=== PATIENT | male | born 1955 | race Caucasian/White ===

== ENCOUNTER 2016-08-03 09:36 | Day surgery (SDC) | payer BC ==
[~2016-08-03 09:36] MED LIST: Lactated Ringers 1,000 ML IV SCH; ceFAZolin 2 GM in Premix Bag 1 BAG IV ONE
[2016-08-03] MEDS ORDERED: Lidocaine 1% with EPINEPHrine 1:100,000 20 ML MDV ONE (10:02)
[2016-08-03] MEDS ORDERED: Bupivacaine 0.25%/EPINEPHrine 1:200,000 10 ML SDV ONE ×2 (10:02→12:23)
[2016-08-03] MEDS ORDERED: Acetaminophen/oxyCODONE 325-5 MG Tab PO PRN (10:39)
--- NOTE | 2016-08-03 10:54 | PCM.PREANE ---
Preanesthetic Assessment - ANESTHESIA/TRANSFUSION/FAMILY HX Anesthesia/Transfusion History: No Prior Anesthesia Type of Anesthesia Reaction: Denies: Allergy, Anesthesia Awareness, Excessive Somnolence, Excessive Nausea/Vomiting, Excessive Itching, Excessive Shivering, Malignant Hyperthermia, Malignant Hyperthermia, Family History, Pseudocholinesterase Deficiency, Pseudocholinesterase Deficiency, Family History of, Urinary Retention, Unknown, Other (see below) Family History of Anesthesia Reaction: No - REVIEW OF SYSTEMS Constitutional: Reports: no symptoms (influenza 1 month ago had chest xray in ER and was negative for pneumonia) OCCUPATIONAL MEDICINE PHYSICIAN: Reports: no symptoms Respiratory: Reports: no symptoms Cardiovascular: Reports: no symptoms GI: Reports: no symptoms Other: Reports: none - PHYSICAL ASSESSMENT O2 Sat by Pulse Oximetry: 98 RR: 16 Vital Signs: Last Vital Signs Temp 36.3 C 08/03/16 10:13 Pulse 72 08/03/16 10:13 Resp 16 08/03/16 10:13 BP 131/77 08/03/16 10:13 Pulse Ox 98 08/03/16 10:13 Height: 5 ft 5 in Weight: 91.172 kg ASA Class: 1 Mental Status: alert & oriented x3 Airway Class: Mallampati = 1 Dentition: Reports: normal dentition ROM/Head Extension: full Respiratory Status: lungs clear to auscultation bilaterally Cardiovascular Status: regular rate & rhythm, normal S1, S2, no murmur, blood pressure WNL - ALLERGIES Allergies/Adverse Reactions: Allergies Allergy/AdvReac Type Severity Reaction Status Date / Time No Known Allergies Allergy Verified 07/09/16 09:11 - BLOOD Blood Available: No - ANESTHESIA PLAN Anesthesia Type Planned: general anesthesia (ETT with prone position) - ACKNOWLEDGEMENTS Pt an appropriate candidate for the planned anesthesia: Yes Alternatives and risks of anesthesia discussed w pt/guardian: Yes Pt/Guardian understands and agree with anesthesia plan: Yes PreAnesthesia Questionnaire HEENT History: Reports: Other (see below) Other HEENT History: wears glasses Cardiovascular History: Reports: Other (see below) Other Cardiovascular History: mild mitral valve prolapse- no symptoms was diagnosed when had strep throat many years ago Respiratory History: Reports: Other (see below) Other Respiratory History: hx of pneumonia Gastrointestinal History: Reports: Other (see below) Other Gastrointestinal History: occasional heartburn Oncologic (Cancer) History: Reports: Basal cell carcinoma Other Oncologic History: basal cell carcinoma to upper left arm, malignant melanoma on rt upper back Dermatologic History: - Infectious Disease History Infectious Disease History: Reports: Chicken pox - Past Surgical History Head Surgeries/Procedures: Reports: None HEENT Surgical History: Reports: None Dermatological Surgical History: Reports: Skin biopsy, Other (see below) - SUBSTANCE USE Smoking Status *Q: Never Smoker Recreational Drug Use History: No - HOME MEDS Home Medications: Home Meds Multivitamin [Multivitamins] 1 tab PO DAILY 08/01/16 [History] - CURRENT (IN HOUSE) MEDS Current Meds: Current Medications Lactated Ringer's (Ringers, Lactated) 1,000 mls @ 125 mls/hr IV ASDIRECTED HARMEET Last Admin: 08/03/16 10:16 Dose: 125 mls/hr Oxycodone/Acetaminophen (Percocet 325-5 Mg) 1 tab PO Q8H PRN PRN Reason: Pain Discontinued Medications Bupivacaine HCl/Epinephrine Bitart (Marcaine 0.25%/Epinephrine 1:200,000) Confirm Administered Dose 10 ml .ROUTE .STK-MED ONE Stop: 08/03/16 10:03 Cefazolin Sodium/Dextrose 2 gm (/ Premix) 50 mls @ 100 mls/hr IV ONETIME ONE Stop: 08/03/16 05:29 Lidocaine/Epinephrine (Xylocaine 1% With Epinephrine 1:100,000) Confirm Administered Dose 20 ml .ROUTE .STK-MED ONE Stop: 08/03/16 10:03
[2016-08-03] MEDS ORDERED: Midazolam 1 MG/ML 2 ML SDV ONE (11:18)
[2016-08-03] MEDS ORDERED: Ondansetron 4 MG/2 ML SDV ONE (11:18)
[2016-08-03] MEDS ORDERED: Rocuronium 10 MG/ML 10 ML Syringe ONE (11:18)
[2016-08-03] MEDS ORDERED: Propofol 200 MG/20 ML SDV ONE ×2 (11:18→11:57)
[2016-08-03] MEDS ORDERED: Lidocaine 2% 5 ML SDV ONE (11:18)
[2016-08-03] MEDS ORDERED: fentaNYL 250 MCG/5 ML SDV ONE (11:19)
[2016-08-03] MEDS ORDERED: fentaNYL 100 MCG/2 ML SDV IVPUSH PRN (12:34)
[2016-08-03] MEDS ORDERED: Neostigmine Methylsulfate 1 MG/ML 5 ML Syringe ONE (12:47)
[2016-08-03] MEDS ORDERED: Ketorolac 30 MG/ML SDV ONE (12:52)
--- NOTE | 2016-08-03 13:14 | PCM.OPNOTE ---
- General Post-Op/Procedure Note Date of Surgery/Procedure: 08/03/16 Operative Procedure(s): 1) wide reexcision, deep, back skin lesion. 2) reexision of bx L arm Findings: see dict [id number] Pre Op Diagnosis: malignant melanoma of back Post-Op Diagnosis: Same Anesthesia Technique: General ET tube Primary Surgeon: Kash Herrmann Pathology: sent Complications: None Condition: Good
--- NOTE | 2016-08-03 14:13 | PCM.POSTAN ---
POST ANESTHESIA ASSESSMENT - MENTAL STATUS Mental Status: alert, oriented - RESPIRATORY Respiratory Status: respiratory rate WNL, airway patent, O2 saturation stable - CARDIOVASCULAR CV Status: pulse rate WNL, blood pressure stable - GASTROINTESTINAL GI Status: no symptoms - PAIN Pain Score: 0 - POST OP HYDRATION Hydration Status: adequate & stable
--- NOTE | 2016-08-03 14:17 | PCM48HPAN ---
Post Anesthesia Note - EVALUATION WITHIN 48HRS OF ANESTHETIC Vital Signs in Normal Range: Yes Patient Participated in Evaluation: Yes Respiratory Function Stable: Yes Airway Patent: Yes Cardiovascular Function Stable: Yes Hydration Status Stable: Yes Pain Control Satisfactory: Yes Nausea and Vomiting Control Satisfactory: Yes Mental Status Recovered: Yes
[2016-08-03 14:22] VITALS: BP 116/85
--- NOTE | 2016-08-03 20:58 | OR ---
SURGEON: Kash Herrmann MD DATE OF PROCEDURE: 08/03/2016 PREOPERATIVE DIAGNOSES: Malignant melanoma on the back and basal cell cancer on the left. POSTOPERATIVE DIAGNOSES: Malignant melanoma on the back and basal cell cancer on the left. PROCEDURE PERFORMED: 1. Wide local re-excision of malignant melanoma on the back. 2. Re-excision of the biopsy site on the left arm. COMPLICATIONS: None. FINDINGS: The back melanoma excised with 1.1 cm margin and deep to the fascia and oriented with a short-short stitch at 12 o'clock and a long-long stitch at 6 o'clock, and sent over as specimen. The specimen is about 4.2 x 3 cm. The left forearm specimen is 1.6 x 1.1 cm oriented with 1 stitch at the proximal margin. DESCRIPTION OF PROCEDURE: The patient was taken to the operating room and placed in supine position. Upon induction of general endotracheal anesthesia, the patient was repositioned into a prone position and the patient's left arm and the back were prepped and draped in a sterile fashion. Attention first was turned to the left forearm. The biopsy site was marked with a stitch in the distal one-third of the left arm using a skin scalpel, a generous margin was marked all the way to healthy skin and excised en bloc and sent for pathology. The specimen marked with proximal 1 stitch. The specimen is 1.6 x 1.1 cm closed with 3-0 Ethilon running baseball stitch. Now, attention was turned to the back specimen and it was marked all from 1.1 cm surrounding the surgical scar and the whole specimen was about 4.2 x 3 cm. Using a skin scalpel, the specimen was excised just on top of the fascia and sent for pathology. Two stitches short-short with 12 o'clock, long-long with 6 o'clock and sent for pathology. Good hemostasis was achieved by using electrocautery and using 2-0 Vicryl to approximate the deep margin, and then using a 2-0 Ethilon in running baseball stitches, followed with appropriate dressing. The patient was awakened. The patient was repositioned into a supine position and awakened, extubated, and transferred to recovery room in hemodynamically stable condition. The patient tolerated procedure well. There were no intraoperative complications. Dr. Herrmann was present throughout the procedure. As always, thank you for the kind referral. MAVERICK / GERMANIA ANAND: 08/03/2016 13:13:29 /[id number]
== END 2016-08-03 14:45 | disposition home or self-care (01) ==
LOC: MW.SDS 09:36
PROVIDERS: ATTEND Surgery
PROC: 0HB6XZZ Excision of Back Skin, External Approach (ICD-10-PCS; principal; 2016-08-03)
DX: C43.62 Malignant melanoma of left upper limb, including shoulder (principal); I34.1 Nonrheumatic mitral (valve) prolapse; Z87.01 Personal history of pneumonia (recurrent); Z79.899 Other long term (current) drug therapy; Z98.890 Other specified postprocedural states
CPT/HCPCS: 11602; 11606; 88305; J1885; J2250; J2405; J2710; J3010; J7120; 00300; J2704